=== PATIENT | female | born 1975 | race African-American/Black ===

== ENCOUNTER 2021-06-19 12:15 | Emergency (ER) | payer BC ==
[~2021-06-19] VITALS: Ht 154.9 cm; Wt 114.0 kg
[2021-06-19 12:22] VITALS: BP 129/91
[2021-06-19] MEDS ORDERED: IBUPROFEN 600MG TABLET PO NR (12:30)
[2021-06-19] MEDS ORDERED: NAPR-681 PO (12:32)
[2021-06-19] MEDS ORDERED: ERYT1OIN6 RIGHTEYE (12:32)
[2021-06-19] MEDS ORDERED: DOXY-326 PO (12:32)
== END 2021-06-19 12:47 | disposition home or self-care (01) ==
LOC: ER 12:15
DX: H00.011 Hordeolum externum right upper eyelid (principal)
CPT/HCPCS: 99283